=== PATIENT | female | born 1995 ===

== ENCOUNTER 2016-11-04 14:36 | Emergency (ER) | payer MEDICAID, OTHER ==
[2016-11-04 14:42] VITALS: RESP 20; O2SAT 100
[2016-11-04] MEDS ORDERED: Lidocaine 5% Patch TD STA (15:31)
[2016-11-04] MEDS ORDERED: Lidocaine 5% Patch TD ONE (15:41)
[2016-11-04 16:39] VITALS: BP 116/82; PULSE 87; TEMP 98.2
--- NOTE | 2016-11-04 16:49 | C.PDOC ---
History Of Present Illness 21y/o female presents to the ED for evaluation of right-sided lateral neck pain which began after she cracked her neck 5 days ago. Patient states her pain radiates to her posterior head and is worse with movement. Patient denies fever , chills. Chief Complaint (Nursing): Back Pain History Per: Patient History/Exam Limitations: no limitations Onset/Duration Of Symptoms: Days (5) Current Symptoms Are (Timing): Still Present Quality Of Discomfort: "Pain" Previous Symptoms: Neck Pain Additional History Per: Patient Past Medical History Reviewed: Historical Data, Nursing Documentation, Vital Signs Vital Signs: Last Vital Signs Temp 98.2 F 11/04/16 16:38 Pulse 87 11/04/16 16:38 Resp 20 11/04/16 16:38 BP 116/82 11/04/16 16:38 Pulse Ox 100 11/04/16 16:49 - Medical History PMH: No Chronic Diseases Surgical History: No Surg Hx Family History: States: Unknown Family Hx - Social History Hx Alcohol Use: No Hx Substance Use: No - Immunization History Hx Tetanus Toxoid Vaccination: No Hx Influenza Vaccination: No Hx Pneumococcal Vaccination: No Review Of Systems Constitutional: Negative for: Fever, Chills Musculoskeletal: Positive for: Neck Pain (right lateral ) Physical Exam - Physical Exam Appears: Non-toxic, No Acute Distress Skin: Normal Color, Warm, Dry Head: Atraumatic, Normacephalic Eye(s): bilateral: Normal Inspection Oral Mucosa: Moist Neck: Decreased ROM (secondary to pain with ipsilateral movement), Other ( tenderness to right lateral neck muscles on palpation) Extremity: Normal ROM, Capillary Refill (less than 2 seconds ) Neurological/Psych: Oriented x3, Normal Speech, Normal Cognition, Other (no focal deficits ) Gait: Steady ED Course And Treatment O2 Sat by Pulse Oximetry: 100 (on RA) Pulse Ox Interpretation: Normal Progress Note: Patient received Toradol IM, Valium PO, and Lidoderm TD. On reassessment, patient is resting comfortably, showing no signs distress and reports an improvement in her neck pain. Patient is stable for discharge and is advised to follow up with her PMD within 1-2 days for further evaluation. Disposition - Disposition Referrals: [facility] [Outside] [facility] [Outside] Disposition: HOME/ ROUTINE Disposition Time: 16:46 Condition: STABLE Additional Instructions: Follow up with PMD within 1-2 days. Return to Ed if feel worse. Prescriptions: Ibuprofen [Motrin Tab] 600 mg PO Q8 #30 tab traMADol [Ultram] 50 mg PO Q6 #15 tab diaZEpam [Valium] 2 mg PO TID #15 tab Instructions: Muscle Spasm (ED) Forms: [facility] [employer] (Serbian), School Excuse - Clinical Impression Clinical Impression: Muscle spasm - PA / CLIENT SERVICES ACCOUNT MANAGER / Resident Statement MD/DO has reviewed & agrees with the documentation as recorded. - Scribe Statement The provider has reviewed the documentation as recorded by the Scribe (Gabriela Ospina) All medical record entries made by the Scribe were at my direction and personally dictated by me. I have reviewed the chart and agree that the record accurately reflects my personal performance of the history, physical exam, medical decision making, and the department course for this patient. I have also personally directed, reviewed, and agree with the discharge instructions and disposition.
== END 2016-11-04 17:00 | disposition home or self-care (01) ==
LOC: C.ER 14:36
DX: M62.838 Other muscle spasm (principal)
CPT/HCPCS: 96372; 99283; J1885